=== PATIENT | female | born 1990 | race Caucasian/White ===

== ENCOUNTER 2016-10-25 13:10 | Inpatient (IN) | payer OTHER ==
[2016-10-25 14:42] LABS: MCH 31.8 pg (25.7-33.7); MCHC 33.9 g/dl (32.0-36.0); MEAN CELL VOLUME 93.7 fl (80-96); MEAN PLT VOLUME 7.6 fl (7.5-11.1); PLATELET COUNT 261 K/MM3 (134-434); RDW 13.4 % (11.6-15.6); WHITE BLOOD COUNT 13.1 K/mm3 (4.0-10.0)
[2016-10-25 14:43] VITALS: BMI 29.7
[2016-10-25 15:05] LABS: CALCIUM 8.9 mg/dL (8.5-10.1); COCKROFT - GAULT 228.582; CREATININE 0.5 mg/dL (0.55-1.02)
[2016-10-25 15:09] LABS: INR 1.1 (0.82-1.09); PROTHROMBIN TIME (PATIENT) 12.1 SEC (9.98-11.88)
[2016-10-25 15:12] LABS: ACTIVATED PTT 30.4 SECONDS (26.9-34.4)
[2016-10-25 15:25] LABS: PLATELET ESTIMATE ADEQUATE (NORMAL)
[2016-10-25] MEDS ORDERED: ELECTROLYTE-148 SOLN 1,000 ML IV ONE (16:15)
[2016-10-25] MEDS ORDERED: ONDANSETRON 4 MG/2 ML VIAL IVPB PRN (16:56)
[2016-10-25] MEDS ORDERED: morphine SULFATE/Preservative Free 0.5 MG/ML (1cc Syringe) EP ONE (16:56)
[2016-10-25] MEDS ORDERED: ELECTROLYTE-148 SOLN 1,000 ML IV SCH (17:00)
--- NOTE | 2016-10-25 17:03 | HP ---
Past Medical History - Admission Chief Complaint: Labor pain / Previous History of Present Illness: 26 yo @ 40 weeks gestation, presents to L&D c/o labor pain. She had one previous in [place] but no scar information record available. History Source: Patient Limitations to Obtaining History: No Limitations - Past Medical History ...: 3 ...Para: 1 ...Term: 1 ...Induced : 1 ...LMP: 01/17/16 ... Weeks Gestation by Dates: 40.2 ...EDC by Dates: 10/23/16 ...EDC by Sono: 10/23/16 - Past Surgical History Past Surgical History: Yes: Hx Myomectomy: No Hx Transabdominal Cerclage: No - Smoking History Smoking history: Never smoked Have you smoked in the past 12 months: No - Alcohol/Substance Use Hx Alcohol Use: No History of Substance Use: reports: None Home Medications - Allergies Allergies/Adverse Reactions: Allergies Allergy/AdvReac Type Severity Reaction Status Date / Time No Known Allergies Allergy Verified 10/25/16 13:37 - Home Medications Home Medications: Ambulatory Orders Vitamins (Sjr) - 1 tab PO DAILY 10/25/16 Family Disease History - Family Disease History Family History: Unremarkable Review of Systems - Review of Systems Constitutional: reports: No Symptoms Eyes: reports: No Symptoms HENT: reports: No Symptoms Neck: reports: No Symptoms Cardiovascular: reports: No Symptoms Respiratory: reports: No Symptoms Gastrointestinal: reports: No Symptoms Genitourinary: reports: No Symptoms Breasts: reports: No Symptoms Reported Musculoskeletal: reports: No Symptoms Integumentary: reports: No Symptoms Neurological: reports: No Symptoms Endocrine: reports: No Symptoms Hematology/Lymphatic: reports: No Symptoms Psychiatric: reports: No Symptoms Pain Intensity: 7 Physical Exam - Maternity Vital Signs: Vital Signs Temperature 97.4 F L 10/25/16 14:24 Pulse Rate 80 10/25/16 16:23 Respiratory Rate 20 10/25/16 16:23 Blood Pressure 115/66 10/25/16 16:23 O2 Sat by Pulse Oximetry (%) Constitutional: Yes: Well Nourished Eyes: Yes: Conjunctiva Clear HENT: Yes: Atraumatic Neck: Yes: Supple, Trachea Midline Cardiovascular: Yes: Regular Rate and Rhythm Lungs: Clear to auscultation Breast(s): Yes: WNL - Abdominal Exam/OB Number of Fetuses: Single Presentation: Vertex Contractions: Yes Regularity: Regular Intensity: Moderate Monitor Mode: External Decelerations: Late - Vaginal Exam/OB Vaginal Bleediing: No Speculum Exam: No Dilatation (cm): 4 Effacement (%): 70 Amniotic Membrane Status: Intact Presentation: Vertex/Position Station: -2 - Physical Exam Musculoskeletal: Yes: WNL Extremities: Yes: WNL Integumentary: Yes: WNL ...Motor Strength: WNL Psychiatric: Yes: Alert, Oriented - Labs Lab Results: CBC, BMP 10/25/16 14:30 10/25/16 14:30 Problem List - Problems (1) Previous section complicating , antepartum condition or complication Code(s): O34.219 - MATERNAL CARE FOR UNSP TYPE SCAR FROM PREVIOUS DEL (2) Pain during labor Code(s): O99.89 - OTH DISEASES AND CONDITIONS COMPL PREG/CHLDBRTH R52 - PAIN, UNSPECIFIED Assessment/Plan Previous Labor pain Pre op for repeat Consent signed Anesthesia to see patient
--- NOTE | 2016-10-25 17:11 | OP ---
Operative Note - Note: Operative Date: 10/25/16 Pre-Operative Diagnosis: Previous in labor / Late decelerations Operation: Repeat Findings: Baby boy in LOT position Positive meconium Post-Operative Diagnosis: Same as Pre-op Surgeon: Mariza Castillo Telecommunication Lines Repairer: Bruce Camilo Anesthesia: Spinal Specimens Removed: Placenta Estimated Blood Loss (mls): 600
[2016-10-25] MEDS ORDERED: IBUPROFEN 600 MG TABLET (FP) PO PRN (18:02)
[2016-10-25] MEDS ORDERED: oxyCODONE HCL 5 MG TABLET PO PRN (18:02)
[2016-10-25] MEDS ORDERED: METHYLERGONOVINE MALEATE 0.2 MG/1 ML AMP IM PRN (18:02)
--- NOTE | 2016-10-25 18:08 | PN ---
Delivery - Delivery Section: Repeat Type of Anesthesia: Spinal EBL (cc): 600 Delivery, Single - [place] Feeding Plan Initial Plan: Elected not to breastfeed exclusively throughout hospitalization
[2016-10-25] MEDS: D5W-LR W/ 20 UNITS OXYTOCIN 1,000 ML IV SCH (18:29)
[2016-10-25] MEDS: IBUPROFEN 800 MG/8 ML IJ IVPB PRN (21:49)
[2016-10-25] MEDS: FERROUS SO4 325 MG TABLET (FP) PO SCH (22:00)
[2016-10-26] MEDS: D5W-LR W/ 20 UNITS OXYTOCIN 1,000 ML IV SCH (04:21)
[2016-10-26] MEDS: IBUPROFEN 800 MG/8 ML IJ IVPB PRN (06:12)
--- NOTE | 2016-10-26 07:33 | PN ---
Progress Note, Physician Chief Complaint: she offers no complaints History of Present Illness: s/p section day #1 - Current Medication List Current Medications: Active Medications Acetaminophen (Tylenol -) 650 mg PO Q4H PRN PRN Reason: FEVER OR PAIN Bisacodyl (Dulcolax Suppository -) 10 mg RC PRN PRN PRN Reason: CONSTIPATION Diphenhydramine HCl (Benadryl Injection -) 25 mg IVPUSH Q4H PRN PRN Reason: Pruritis Diphtheria/Tetanus/Acell Pertussis (Boostrix -) 0.5 ml IM .ONCE ONE Stop: 10/26/16 10:01 Ferrous Sulfate (Feosol -) 325 mg PO BID KUN Last Admin: 10/25/16 22:00 Dose: Not Given Parenteral Electrolytes (Plasma-Lyte 148 -) 1,000 mls @ 125 mls/hr IV ASDIR [facility] Dextrose/Lactated Ringer's (Pitocin 20 Units In D5-Lr -) 1,000 mls @ 125 mls/ hr IV ASDIR KUN Last Admin: 10/26/16 04:21 Dose: 125 mls/hr Ibuprofen (Motrin -) 600 mg PO Q4H PRN PRN Reason: PAIN Ibuprofen (Caldolor Injection -) 600 mg IVPB Q8H PRN PRN Reason: FEVER Last Admin: 10/26/16 06:12 Dose: 600 mg Ibuprofen (Motrin -) 600 mg PO Q4H PRN PRN Reason: PAIN Methylergonovine Maleate (Methergine Injection -) 0.2 mg IM Q4H PRN PRN Reason: Excessive Bleeding (L&D) Oxycodone HCl (Roxicodone -) 5 mg PO Q4H PRN PRN Reason: PAIN LEVEL 1-5 Multivit/Folic Acid/Iron ( Vitamins (Sjr) -) 1 tab PO DAILY [facility] Simethicone (Mylicon -) 80 mg PO Q4H PRN PRN Reason: GAS - Objective Vital Signs: Vital Signs Temperature 99.1 F 10/26/16 06:00 Pulse Rate 109 H 10/26/16 06:00 Respiratory Rate 20 10/26/16 06:00 Blood Pressure 122/66 10/26/16 06:00 O2 Sat by Pulse Oximetry (%) Constitutional: Yes: Well Nourished, No Distress Eyes: Yes: WNL, Conjunctiva Clear HENT: Yes: WNL, Atraumatic, Normocephalic Neck: Yes: WNL, Supple Cardiovascular: Yes: WNL, Regular Rate and Rhythm Respiratory: Yes: WNL Gastrointestinal: Yes: WNL ...Rectal Exam: Yes: Deferred Genitourinary: Yes: WNL Breast(s): Yes: WNL Musculoskeletal: Yes: WNL Extremities: Yes: WNL Edema: No Peripheral Pulses WNL: Yes Integumentary: Yes: WNL Wound/Incision: Yes: Dressing Dry and Intact Neurological: Yes: WNL, Alert, Oriented ...Motor Strength: WNL Psychiatric: Yes: Alert, Oriented Labs: CBC, BMP 10/25/16 14:30 INR, PTT INR 1.10 (0.82-1.09) 10/25/16 14:30 Assessment/Plan s/p section day #1 condition stable continue post operative care encourage ambulation advancs po as tolorated pain management as needed.
[2016-10-26 08:41] LABS: BASOPHIL 0.3 % (0-2.0); EOSINOPHIL 0.5 % (0-4.5); MCH 32.4 pg (25.7-33.7); MCHC 34.6 g/dl (32.0-36.0); MEAN CELL VOLUME 93.5 fl (80-96); NEUTROPHILS 81.7 % (42.8-82.8); PLATELET COUNT 187 K/MM3 (134-434); RDW 13.4 % (11.6-15.6); WHITE BLOOD COUNT 11.7 K/mm3 (4.0-10.0)
[2016-10-26] MEDS ORDERED: DIPHTH,PERTUSS(ACELL),TET 0.5 ML DISP.SYRIN IM ONE (10:00)
[2016-10-26] MEDS: PRENATAL VITAMINS W/ FOLIC ACID TABLET (FP) PO SCH (10:51)
[2016-10-26] MEDS: FERROUS SO4 325 MG TABLET (FP) PO SCH ×2 (10:52→21:47)
[2016-10-26] MEDS: IBUPROFEN 600 MG TABLET (FP) PO PRN ×3 (11:58→21:46)
[2016-10-26] MEDS: SIMETHICONE 80 MG TAB.CHEW (FP) PO PRN ×3 (11:58→21:46)
[2016-10-26] MEDS: ACETAMINOPHEN 325 MG TABLET (FP) PO PRN ×3 (11:59→21:46)
--- NOTE | 2016-10-26 12:51 | PN ---
Progress Note (short form) - Note Progress Note: POD #1 - s/p under spinal anesthesia with duramorph. Pt. doing well, resting comfortably in bed. No complaints. Good pain control. No apparent anesthetic complications noted. Continue current care.
[2016-10-26] MEDS ORDERED: BISACODYL 10 MG SUPP.RECT RC PRN (18:02)
[2016-10-27] MEDS: ACETAMINOPHEN 325 MG TABLET (FP) PO PRN ×4 (06:32→21:17)
[2016-10-27] MEDS: IBUPROFEN 600 MG TABLET (FP) PO PRN ×4 (06:32→21:18)
[2016-10-27] MEDS: SIMETHICONE 80 MG TAB.CHEW (FP) PO PRN ×2 (06:32→10:37)
[2016-10-27] MEDS: PRENATAL VITAMINS W/ FOLIC ACID TABLET (FP) PO SCH (10:36)
[2016-10-27] MEDS: FERROUS SO4 325 MG TABLET (FP) PO SCH ×2 (10:36→21:17)
--- NOTE | 2016-10-27 13:11 | PN ---
Post Progress Note - Subjective Subjective: Pt seen/examined and only has complaints of incisional pain. VB moderate and decreasing. No CP/SOB/F/C/CRUZ. Tolerating diet. Voiding. Ambulating. Type of Delivery: Repeat C/S Vital Signs: Vital Signs Temperature 97.6 F 10/27/16 08:15 Pulse Rate 86 10/27/16 08:15 Respiratory Rate 18 10/27/16 08:15 Blood Pressure 126/68 10/27/16 08:15 O2 Sat by Pulse Oximetry (%) Breast Exam: Yes: Soft Uterus: Yes: Fundus Firm, Fundus below umbilicus Incision: Yes: Sutures intact Abdomen/GI: Yes: Abdomen soft, Passing flatus, Tolerating PO. No: Tender Lochia: Yes: Rubra Lochia, amount: Moderate Extremities: Yes: Calves non-tender. No: Edema Perineum: Yes: Intact - Labs Labs: CBC WBC 11.7 K/mm3 (4.0-10.0) H 10/26/16 05:35 RBC 3.47 M/mm3 (3.60-5.2) L 10/26/16 05:35 Hgb 11.2 GM/dL (10.7-15.3) D 10/26/16 05:35 Hct 32.4 % (32.4-45.2) D 10/26/16 05:35 MCV 93.5 fl (80-96) 10/26/16 05:35 MCHC 34.6 g/dl (32.0-36.0) 10/26/16 05:35 RDW 13.4 % (11.6-15.6) 10/26/16 05:35 Plt Count 187 K/MM3 (134-434) D 10/26/16 05:35 MPV 8.0 fl (7.5-11.1) 10/26/16 05:35 Neutrophils % 81.7 % (42.8-82.8) 10/26/16 05:35 Lymphocytes % 10.0 % (8-40) D 10/26/16 05:35 Monocytes % 7.5 % (3.8-10.2) 10/26/16 05:35 Eosinophils % 0.5 % (0-4.5) 10/26/16 05:35 Basophils % 0.3 % (0-2.0) 10/26/16 05:35 Differential Comment Manual diff done 10/25/16 14:30 Platelet Estimate Adequate (NORMAL) 10/25/16 14:30 Problem List - Problems (1) delivery delivered Code(s): O82 - ENCOUNTER FOR DELIVERY WITHOUT INDICATION Assessment/Plan 26 y/o POD#2 s/p repeat delivery - AFVSS - Regular diet, PO pain meds, encourage ambulation - Hgb 11.2 post op, pt stable - routine care for discharge home in a.m. if stable
--- NOTE | 2016-10-27 19:39 | DS ---
Physical Exam-PERSONAL COMPUTER NETWORK ANALYST Vital Signs: Vital Signs Temperature 97.6 F 10/27/16 08:15 Pulse Rate 86 10/27/16 08:15 Respiratory Rate 18 10/27/16 08:15 Blood Pressure 126/68 10/27/16 08:15 O2 Sat by Pulse Oximetry (%) Constitutional: Yes: Well Nourished Eyes: Yes: Conjunctiva Clear HENT: Yes: Atraumatic Neck: Yes: Supple, Trachea Midline Cardiovascular: Yes: Regular Rate and Rhythm Respiratory: Yes: Regular, CTA Bilaterally Gastrointestinal: Yes: Normal Bowel Sounds Vaginal Exam: Yes: Normal Cervix: Yes: Normal Uterus: Yes: Normal Wound/Incision: Yes: Well Approximated, Steri Strips (in place) Neurological: Yes: Alert, Oriented ...Motor Strength: WNL Psychiatric: Yes: Alert, Oriented Labs: CBC, BMP 10/26/16 05:35 10/25/16 14:30 Delivery - Delivery Section: Repeat Type of Anesthesia: Spinal Episiotomy/Laceration: None EBL (cc): 600 Delivery, Single - Stages of Labor Date 1st Stage Initiatied: 10/25/16 Time 1st Stage Initiated: 10:30 Date of Delivery: 10/25/16 Time of Delivery: 17:24 Time Placenta Delivered: 17:26 - Condition of Infant Account Services Analyst/Nurse'S Aides Teacher Present: Yes Name: Gayle Diop Gender: Male Weight: 8 lb 9 oz Position: Left, OT Total Hours ROM (Hrs/Mins): 1min. - 1 Minute Total Score: 9 5 Minutes Total Score: 9 - Feeding Plan Initial Plan: Elected not to breastfeed exclusively throughout hospitalization Discharge Summary Reason For Visit: LABOR Current Active Problems delivery delivered (Acute) Pain during labor (Acute) Previous section complicating , antepartum condition or complication (Acute) Procedures: Principal: Repeat Hospital Course: Routine Post op care Condition: Good - Instructions Diet, Activity, Other Instructions: Regular diet Wound care No driving, no lifting x 4 weeks F/U with MD in one week Referrals: Mariza Castillo MD [Staff Physician] - Disposition: HOME - Home Medications Comprehensive Discharge Medication List: Ambulatory Orders Vitamins (Sjr) - 1 tab PO DAILY 10/25/16
[2016-10-28] MEDS: ACETAMINOPHEN 325 MG TABLET (FP) PO PRN ×2 (05:55→09:38)
[2016-10-28] MEDS: IBUPROFEN 600 MG TABLET (FP) PO PRN ×2 (05:56→09:39)
[2016-10-28 09:12] LABS: BASOPHIL 0.5 % (0-2.0); MCH 31.2 pg (25.7-33.7); MCHC 33.1 g/dl (32.0-36.0); MEAN CELL VOLUME 94.5 fl (80-96); MEAN PLT VOLUME 7.3 fl (7.5-11.1); NEUTROPHILS 67.5 % (42.8-82.8); PLATELET COUNT 232 K/MM3 (134-434); RDW 13.8 % (11.6-15.6)
[2016-10-28] MEDS: FERROUS SO4 325 MG TABLET (FP) PO SCH (09:38)
[2016-10-28] MEDS: PRENATAL VITAMINS W/ FOLIC ACID TABLET (FP) PO SCH (09:38)
[2016-10-28 11:25] VITALS: BP 129/78; PULSE 69; TEMP 98.3
--- NOTE | 2016-10-30 15:05 | PATH ---
Surgical Pathology Report Patient Name: LUZ ELENA FLYNN Med. Rec. #: [id number] /Age/Gender: 1990 (Age: 26) / F Account: [id number] Location: [facility] OBS/ARSON AND BOMB INVESTIGATOR Taken: 10/25/2016 Received: 10/27/2016 Reported: 10/30/2016 Physicians: Mariza Castillo M.D. Specimen(s) Received PLACENTA Clinical History , 40.2 weeks' gestation, previous 2011 Final Diagnosis PLACENTA, DELIVERY: FOCALLY DISRUPTED THIRD TRIMESTER PLACENTA WITH INTERVILLOUS THROMBUS, AREAS OF CALCIFICATION, THREE VESSEL UMBILICAL CORD AND UNREMARKABLE PLACENTAL MEMBRANES. Electronically Signed Adrian Gillespie M.D. Gross Description The specimen is received fresh labeled placenta and is a 558 gram, 19.0 x 14.0 x 2.8 cm. placenta with attached membranes and umbilical cord. The attached membranes are morfin, translucent with focal opacity is and insert marginally. The umbilical cord measures 50 cm. in length and averages 1.2 cm. in diameter. The cord inserts eccentrically, 3 cm. to the nearest margin. No true knots or strictures are identified. Cut surface of the umbilical cord reveals 3 vessels. The surface is levin blue with moderate fibrin deposition and appropriate caliber vessels. The maternal surface is red-brown with focal defects. Sectioning reveals a 1.4 cm in greatest dimension intraparenchymal lesion. The remaining placental parenchyma is red-brown and spongy. Marketing Database Analyst sections are submitted in 4 cassettes as follows: 1-membrane rolls and umbilical cord; 2-lesion; 3-4-full thickness sections of placenta. 10/29/201610/29/2016
--- NOTE | 2016-11-11 19:08 | OP ---
DATE OF OPERATION: 10/25/2016 PREOPERATIVE DIAGNOSIS: Previous section. POSTOPERATIVE DIAGNOSIS: Previous section. PROCEDURE: A repeat section. SURGEON: Mariza Castillo M.D. COMPLICATIONS: None. ESTIMATED BLOOD LOSS: 600 mL. PROCEDURE: Patient was taken to the operating room where spinal anesthesia was administered. Patient was then prepped and draped in proper sterile fashion. A Pfannenstiel skin incision was made and carried down to the underlying layer of fascia. The fascia was incised in the midline and extended laterally. The superior aspect of the fascial incision was then grasped with Amie clamps, elevated, and the rectus muscles dissected off bluntly. Attention was then turned to the inferior aspect of the fascial incision, which in a similar fashion was then grasped with Amie clamps, elevated, and the rectus muscle dissected off bluntly. The rectus muscle was then in the midline. The peritoneum identified and entered sharply with the Metzenbaum scissors. This incision was extended superiorly and inferiorly with of the bladder. Then the vesicouterine peritoneum was then grasped with the pickup and entered sharply with the Metzenbaum scissors. This incision was extended laterally, and a bladder flap created digitally. Then the bladder blade was reinserted and the lower uterine segment was then incised with a 10 blade. This incision was extended laterally and the head delivered atraumatically. Nose and mouth were suctioned, and the cord clamped and cut. The infant was handed to the waiting lamp shade sewer. Then the placenta was removed manually. The uterus was exteriorized and cleaned with all clots and debris. The uterine incision was repaired using 0 Biosyn in a running, locked fashion. The second layer of the same suture was used as a means to provide excellent hemostasis. There was some bleeding noted on the right cornua, and Surgicel was placed. Then the pelvis was then irrigated. The uterus was returned to the abdomen. Then the peritoneum was closed using 2-0 Biosyn. The fascia was reapproximated using 0 Vicryl in a running fashion. The skin was closed in a subcuticular fashion using 3-0 Vicryl. Patient tolerated procedure well. Patient was then taken to PACU in stable condition. Pathology: placenta. MARIZA CASTILLO M.D. BRANDT/[id number]
== END 2016-10-28 15:37 | disposition home or self-care (01) | DRG 540 ==
LOC: JDEL 13:10 → JLDR 13:11 → J3W 20:29
PROVIDERS: ADMIT Obstetrics & Gynecology; ATTEND Obstetrics & Gynecology
PROC: 10D00Z1 Extraction of Products of Conception, Low, Open Approach (ICD-10-PCS; principal; 2016-10-25)
DX: O34.211 Maternal care for low transverse scar from previous cesarean delivery (principal); Z3A.40 40 weeks gestation of pregnancy; Z37.0 Single live birth
CPT/HCPCS: 36415; 80048; 85025; 85610; 85730; 86593; 86850; 86900; 86901; 88307-TC; 90715

== ENCOUNTER 2024-03-13 15:29 | Emergency (ER) | payer OTHER ==
[2024-03-13 15:36] VITALS: BP 138/70; PULSE 98; RESP 20; TEMP 98.1; BMI 27.9
[2024-03-13 16:34] LABS: BASO % 1.1 % (0-2.0); EOS % 3.7 % (0-4.5); HEMOGLOBIN 11.1 GM/dL (10.7-15.3); LYMPH % 26.4 % (8-40); MCHC 32.7 g/dl (32.0-36.0); MEAN CELL VOLUME 82.6 fl (80-96); MEAN PLT VOLUME 7.2 fl (7.5-11.1); NEUT % 61.8 % (42.8-82.8); PLATELET COUNT 348 10^3/uL (134-434); RBC 4.12 M/mm3 (3.60-5.2); RDW 16.2 % (11.6-15.6); WHITE BLOOD COUNT 7.6 K/mm3 (4.0-10.0)
[2024-03-13 16:46] LABS: POTASSIUM 3.6 mmol/L (3.5-5.1)
[2024-03-13 16:49] LABS: BLOOD UREA NITROGEN 14.5 mg/dL (7-18); CALCIUM 9.2 mg/dL (8.5-10.1)
[2024-03-13 16:52] LABS: CREATININE 0.8 mg/dL (0.55-1.3)
[2024-03-13 16:54] LABS: BILIRUBIN,TOTAL 0.3 mg/dL (0.2-1)
[2024-03-13 17:43] LABS: HIV INTERPRETATION NEGATIVE (NEGATIVE)
== END 2024-03-13 18:05 | disposition home or self-care (01) ==
LOC: JERFT 15:29
DX: S61.231A Puncture wound without foreign body of left index finger without damage to nail, initial encounter (principal); W46.1XXA Contact with contaminated hypodermic needle, initial encounter; Y99.0 Civilian activity done for income or pay
CPT/HCPCS: 36415; 80053; 82465; 85025; 86704; 86803; 87340; 87389; 87517; 99283-25